=== PATIENT | female | born 1950 | race Caucasian/White ===

== ENCOUNTER 2017-12-15 08:47 | Inpatient (IN) | payer MEDICARE ==
[2017-12-07 13:39] LABS: PRE OP PROTIME 10.7 SECONDS (9.0-12.0)
[2017-12-07 13:43] LABS: ALBUMIN 3.5 G/DL (3.4-5.0); ALBUMIN/GLOBULIN RATIO 0.9 (1.1-1.5); ALKALINE PHOSPHATASE 86 IU/L (46-116); BLOOD UREA NITROGEN 20 MG/DL (7-18); CALCIUM 9.2 MG/DL (8.5-10.1); CHLORIDE 105 MMOL/L (99-107); CREATININE 0.74 MG/DL (0.40-0.90); PRE OP ALT 21 U/L (30-65); PRE OP ANION GAP 8 (8-16); PRE OP AST 18 U/L (10-37); PRE OP BILIRUB, TOTAL 0.6 MG/DL (0.0-1.0); PRE OP GLUCOSE 102 MG/DL (70-104); PRE OP POTASSIUM 3.8 MMOL/L (3.4-5.1); PRE OP SODIUM 142 MMOL/L (135-145); TOTAL CARBON DIOXIDE 29.1 MMOL/L (24-32); TOTAL PROTEIN 7.6 G/DL (6.4-8.2); eGFR 79 ML/MIN
[2017-12-07 13:48] LABS: BASOPHILS # (AUTO) 0.2 X10'3 (0-0.2); BASOPHILS % (AUTO) 2.1 % (0-1); EOSINOPHILS # (AUTO) 0.2 X10'3 (0-0.9); EOSINOPHILS % (AUTO) 2.4 % (0-6); LYMPHOCYTES # (AUTO) 2.3 X10'3 (1.1-4.8); LYMPHOCYTES % (AUTO) 30.2 % (21-51); MEAN CORPUSCULAR HGB CONC 34.5 % (33.0-36.5); MEAN CORPUSCULAR VOLUME 95.9 FL (78-98); MEAN PLATELET VOLUME 9.3 FL (7.4-10.4); MONOCYTES # (AUTO) 0.6 X10'3 (0-0.9); MONOCYTES % (AUTO) 8.1 % (2-12); NEUTROPHILS # (AUTO) 4.2 X10'3 (1.8-7.7); NEUTROPHILS % (AUTO) 57.2 % (42-75); PRE OP HEMATOCRIT 44.3 % (35.0-45.0); PRE OP HEMOGLOBIN 15.3 g/dL (12.0-16.0); PRE OP PLATELET COUNT 129 X10'3 (140-440); RED BLOOD COUNT 4.62 X10'6 (4.20-5.60); RED CELL DISTRIBUTION WIDTH 12.1 % (11.5-14.5)
[2017-12-15] VITALS (16 sets, daily range): BP systolic 78–144; BP diastolic 41–108
[~2017-12-15] VITALS: Ht 157.5 cm; Wt 113.6 kg
[~2017-12-15 08:47] MED LIST: ACET-812 PO; cefazolin/dext.iso 2gm/100 ML IV ONE; famotidine 20mg tablet PO ONE; ringers solution, lacted 1,000 ML IV SCH; vancomycin inj 1,500 MG in normal saline 300ml IV soln IV ONE
[2017-12-15] MEDS ORDERED: LIDOcaine 1% (10mg/ml) 2ml vial ONE (09:43)
[2017-12-15] MEDS ORDERED: tetracaine 1% (10mg/ml) pres. free inj. ONE (12:26)
[2017-12-15] MEDS ORDERED: fentaNYL/PF 50MCG/1 ML 2ML syringe ONE (12:30)
[2017-12-15] MEDS ORDERED: MIDAZolam 5mg/5ml vial ONE (12:30)
[2017-12-15] MEDS ORDERED: morphine /PF 1mg/ml 10ml inj. ONE (12:30)
[2017-12-15] MEDS ORDERED: ketorolac trometh. 30mg/ml inj. ONE (12:35)
[2017-12-15] MEDS ORDERED: ROPIVAcaine 0.5% (5mg/ml) 30ml vial ONE ×2 (12:35→13:51)
[2017-12-15] MEDS ORDERED: vancomycin 1,000mg inj ONE (12:35)
[2017-12-15] MEDS ORDERED: sevoflurane 250ml liquid IH ONE (13:20)
[2017-12-15] MEDS ORDERED: tranexamic acid inj. 1,150 MG in normal saline 100ml IV soln 100 ML IV ONE ×5 (13:25→19:05)
[2017-12-15] MEDS ORDERED: LIDOcaine 1%/PF 5ML 10 MG/ML VIAL ONE (13:46)
[2017-12-15] MEDS ORDERED: propofol inj 20 ML IV ONE (13:46)
[2017-12-15] MEDS ORDERED: diphenhydrAMINE 50 mg/ml inj ONE (13:46)
[2017-12-15] MEDS ORDERED: ringers solution, lacted 1,000 ML IV SCH (14:49)
[2017-12-15] MEDS ORDERED: naloxone 2mg/2ml inj 2 MG in normal saline 500ml IV soln 500 ML IV PRN (14:49)
[2017-12-15] MEDS ORDERED: diphenhydrAMINE 50 mg/ml inj IV PRN (14:50)
[2017-12-15] MEDS ORDERED: morphine 4 MG/ML inj SYRINge IV PRN ×2 (14:50)
[2017-12-15] MEDS ORDERED: proCHLORperazine 10 MG/2 ml inj IV PRN (14:50)
[2017-12-15] MEDS ORDERED: meperidine/PF 25mg/ml syringe IV PRN ×3 (14:50)
[2017-12-15] MEDS ORDERED: ondansetron/PF 4mg/2ml inj IV PRN ×3 (14:50→16:05)
[2017-12-15] MEDS ORDERED: bisacodyl 10mg suppository rectal RC PRN (16:05)
[2017-12-15] MEDS ORDERED: magnesium hydroxide 30ml (MOM) UD suspension PO PRN (16:05)
[2017-12-15] MEDS ORDERED: HYDROmorphone 1 mg/ml syringe IV PRN ×2 (16:05)
[2017-12-15] MEDS ORDERED: acetaminophen 325mg tablet PO PRN (16:05)
[2017-12-15] MEDS ORDERED: diphenhydrAMINE 25mg capsule PO PRN ×2 (16:05)
[2017-12-15] MEDS ORDERED: oxyCODONE IR 5mg (immed. release) tablet PO PRN (16:05)
[2017-12-15] MEDS ORDERED: vancomycin/NS 1 GM ADD-VANTAGE 250 ML IV SCH (20:00)
[2017-12-15] MEDS: ketorolac tromethamine 15mg/ml inj. IV SCH (20:02)
[2017-12-15] MEDS: acetaminophen 325mg tablet PO SCH (20:02)
[2017-12-15] MEDS: potassium cl 20mEq in 1/2 NS 1,000 ML IV SCH ×2 (20:03→23:57)
[2017-12-15] MEDS: gabapentin 300mg capsule PO SCH (21:02)
[2017-12-15] MEDS: sennosides 8.6mg tablet PO SCH (21:02)
[2017-12-15] MEDS: ceFAZolin 1GM/D5W- ADD-VANTAGE 50 ML IV SCH (23:55)
[2017-12-16] MEDS: ketorolac tromethamine 15mg/ml inj. IV SCH ×3 (01:53→14:53)
[2017-12-16 02:00] VITALS: BP 97/43
[2017-12-16] MEDS: acetaminophen 325mg tablet PO SCH ×4 (02:01→20:13)
[2017-12-16] MEDS: potassium cl 20mEq in 1/2 NS 1,000 ML IV SCH (05:37)
[2017-12-16] MEDS: oxyCODONE IR 5mg (immed. release) tablet PO PRN ×4 (05:37→19:30)
[2017-12-16 05:55] LABS: BASOPHILS % (AUTO) 0.3 % (0-1); EOSINOPHILS # (AUTO) 0.1 X10'3 (0-0.9); EOSINOPHILS % (AUTO) 1.3 % (0-6); HEMOGLOBIN 13.8 g/dl (12.0-16.0); LYMPHOCYTES # (AUTO) 0.9 X10'3 (1.1-4.8); LYMPHOCYTES % (AUTO) 12.9 % (21-51); MEAN CORPUSCULAR HEMOGLOBIN 32.9 PG (27.0-31.0); MEAN CORPUSCULAR HGB CONC 34.4 % (33.0-36.5); MEAN CORPUSCULAR VOLUME 95.5 FL (78-98); MEAN PLATELET VOLUME 8.1 FL (7.4-10.4); MONOCYTES # (AUTO) 0.4 X10'3 (0-0.9); MONOCYTES % (AUTO) 5.7 % (2-12); NEUTROPHILS # (AUTO) 5.8 X10'3 (1.8-7.7); NEUTROPHILS % (AUTO) 79.8 % (42-75); PLATELET COUNT 121 X10'3 (140-440); RED BLOOD COUNT 4.19 X10'6 (4.20-5.60); RED CELL DISTRIBUTION WIDTH 12.8 % (11.5-14.5); WHITE BLOOD COUNT 7.3 X10'3 (4.5-11.0)
[2017-12-16 06:00] VITALS: BP 108/45
[2017-12-16 06:16] LABS: ANION GAP 5 (8-16); CHLORIDE 108 MMOL/L (99-107); POTASSIUM 4.5 MMOL/L (3.5-5.1); SODIUM 140 MMOL/L (135-145); TOTAL CARBON DIOXIDE 27.4 MMOL/L (24-32)
[2017-12-16] MEDS: gabapentin 300mg capsule PO SCH ×3 (08:18→20:12)
[2017-12-16] MEDS: ceFAZolin 1GM/D5W- ADD-VANTAGE 50 ML IV SCH (08:18)
[2017-12-16] MEDS: aspirin 325mg tablet PO SCH (08:19)
[2017-12-16 10:30] VITALS: BP 113/50
[2017-12-16 18:00] VITALS: BP 133/56
[2017-12-16] MEDS: sennosides 8.6mg tablet PO SCH (20:12)
[2017-12-16] MEDS: celeCOXIB 100mg capsule PO SCH (20:12)
[2017-12-16 22:00] VITALS: BP 118/40
[2017-12-17] MEDS: potassium cl 20mEq in 1/2 NS 1,000 ML IV SCH (00:05)
[2017-12-17] MEDS: oxyCODONE IR 5mg (immed. release) tablet PO PRN ×2 (00:31→04:39)
[2017-12-17] MEDS: acetaminophen 325mg tablet PO SCH ×2 (01:55→07:34)
[2017-12-17 05:00] VITALS: BP 127/52
[2017-12-17] MEDS ORDERED: ASPI-1 PO (06:40)
[2017-12-17 07:33] LABS: BASOPHILS % (AUTO) 0.3 % (0-1); EOSINOPHILS # (AUTO) 0.1 X10'3 (0-0.9); EOSINOPHILS % (AUTO) 2.3 % (0-6); HEMATOCRIT 37.8 % (35.0-45.0); HEMOGLOBIN 12.8 g/dl (12.0-16.0); LYMPHOCYTES # (AUTO) 1.4 X10'3 (1.1-4.8); LYMPHOCYTES % (AUTO) 22.1 % (21-51); MEAN CORPUSCULAR HEMOGLOBIN 32.7 PG (27.0-31.0); MEAN CORPUSCULAR HGB CONC 33.9 % (33.0-36.5); MEAN CORPUSCULAR VOLUME 96.4 FL (78-98); MONOCYTES # (AUTO) 0.4 X10'3 (0-0.9); MONOCYTES % (AUTO) 6.2 % (2-12); NEUTROPHILS # (AUTO) 4.3 X10'3 (1.8-7.7); NEUTROPHILS % (AUTO) 69.1 % (42-75); PLATELET COUNT 118 X10'3 (140-440); RED BLOOD COUNT 3.92 X10'6 (4.20-5.60); WHITE BLOOD COUNT 6.3 X10'3 (4.5-11.0)
[2017-12-17] MEDS: gabapentin 300mg capsule PO SCH (07:34)
[2017-12-17] MEDS: celeCOXIB 100mg capsule PO SCH (07:34)
[2017-12-17] MEDS: aspirin 325mg tablet PO SCH (07:34)
[2017-12-17 10:00] VITALS: BP 150/60
[2017-12-17] MEDS ORDERED: acetaminophen 325mg tablet PO PRN (16:05)
== END 2017-12-17 10:40 | disposition home health service (06) | DRG 470 ==
LOC: PAS IN 08:47 → EDSTATUS 12:45 → ORTHO 4S 17:40
PROVIDERS: ADMIT Orthopaedic Surgery; ATTEND Orthopaedic Surgery
PROC: 3E0T3BZ Introduction of Anesthetic Agent into Peripheral Nerves and Plexi, Percutaneous Approach (ICD-10-PCS; 2017-12-15)
PROC: 8E0YXBZ Computer Assisted Procedure of Lower Extremity (ICD-10-PCS; 2017-12-15)
PROC: 8E0YXCZ Robotic Assisted Procedure of Lower Extremity (ICD-10-PCS; 2017-12-15)
PROC: 0SRC0J9 Replacement of Right Knee Joint with Synthetic Substitute, Cemented, Open Approach (ICD-10-PCS; principal; 2017-12-15 13:20)
PROC: 5A09357 Assistance with Respiratory Ventilation, Less than 24 Consecutive Hours, Continuous Positive Airway Pressure (ICD-10-PCS; 2017-12-16)
DX: M17.11 Unilateral primary osteoarthritis, right knee (principal); Z68.42 Body mass index [BMI] 45.0-49.9, adult; G47.33 Obstructive sleep apnea (adult) (pediatric); Z96.652 Presence of left artificial knee joint; E66.9 Obesity, unspecified; Z79.899 Other long term (current) drug therapy
CPT/HCPCS: 36415; 80051; 80053; 85025; 85610; 85730; 87070; 97110; 97116; 97162; 97530; A6455; A7000; C1713; C1758; C1776; J0690; J1200; J1885; J2001; J2250; J2274; J2310; J2704; J2795; J3010; J3370; J3490; J7030; J7120

== ENCOUNTER 2018-11-26 07:22 | Inpatient (IN) | payer MEDICARE ==
[2018-11-18 13:00] LABS: BASOPHILS # (AUTO) 0.1 X10'3 (0-0.2); BASOPHILS % (AUTO) 0.8 % (0-1); EOSINOPHILS # (AUTO) 0.1 X10'3 (0-0.9); LYMPHOCYTES # (AUTO) 1.9 X10'3 (1.1-4.8); MEAN CORPUSCULAR HEMOGLOBIN 32.8 PG (27.0-31.0); MEAN CORPUSCULAR HGB CONC 34.2 g/dL (33.0-36.5); MEAN CORPUSCULAR VOLUME 95.9 FL (78-98); MEAN PLATELET VOLUME 8.2 FL (7.4-10.4); MONOCYTES # (AUTO) 0.6 X10'3 (0-0.9); MONOCYTES % (AUTO) 7.3 % (2-12); NEUTROPHILS # (AUTO) 4.9 X10'3 (1.8-7.7); NEUTROPHILS % (AUTO) 64.9 % (42-75); PRE OP HEMOGLOBIN 15.7 g/dL (12.0-16.0); PRE OP PLATELET COUNT 177 X10'3 (140-440)
[2018-11-18 13:10] LABS: PRE OP PROTIME 10.6 SECONDS (9.0-12.0)
[2018-11-18 13:12] LABS: ALBUMIN 3.6 G/DL (3.4-5.0); ALBUMIN/GLOBULIN RATIO 0.8 (1.1-1.5); ALKALINE PHOSPHATASE 99 IU/L (46-116); BLOOD UREA NITROGEN 24 MG/DL (7-18); BUN/CREATININE RATIO 34.3 (6.6-38.0); CALCIUM 8.8 MG/DL (8.5-10.1); CHLORIDE 108 MMOL/L (99-107); PRE OP ALT 22 U/L (30-65); PRE OP ANION GAP 7 (8-16); PRE OP AST 18 U/L (10-37); PRE OP BILIRUB, TOTAL 0.6 MG/DL (0.0-1.0); PRE OP GLUCOSE 87 MG/DL (70-104); PRE OP SODIUM 144 MMOL/L (135-145); TOTAL CARBON DIOXIDE 28.6 MMOL/L (24-32); eGFR 83 ML/MIN
[~2018-11-26] VITALS: Ht 157.5 cm; Wt 112.6 kg
[2018-11-26] VITALS (15 sets, daily range): BP systolic 91–159; BP diastolic 42–78
[2018-11-26] MEDS: potassium cl 20mEq in 1/2 NS 1,000 ML IV SCH ×2 (05:00→16:33)
[~2018-11-26 07:22] MED LIST changes: -cefazolin/dext.iso 2gm/100 ML IV ONE; -famotidine 20mg tablet PO ONE; -ringers solution, lacted 1,000 ML IV SCH; -vancomycin inj 1,500 MG in normal saline 300ml IV soln IV ONE
[2018-11-26] MEDS ORDERED: ringers solution, lacted 1,000 ML IV SCH ×2 (09:00→11:32)
[2018-11-26] MEDS ORDERED: cefazolin/dext.iso 2gm/50ml 50 ML IV ONE (09:00)
[2018-11-26] MEDS ORDERED: vancomycin inj 1,500 MG in normal saline 300ml IV soln IV ONE (09:00)
[2018-11-26] MEDS ORDERED: ceFAZolin 1GM/D5W- ADD-VANTAGE 50 ML IV ONE (09:00)
[2018-11-26] MEDS ORDERED: famotidine 20mg tablet PO ONE (09:00)
[2018-11-26] MEDS ORDERED: tranexamic acid inj. 1,100 MG in normal saline 100ml IV soln 100 ML IV ONE ×5 (10:45→18:15)
[2018-11-26] MEDS ORDERED: ketorolac trometh. 30mg/ml inj. ONE (10:46)
[2018-11-26] MEDS ORDERED: ROPIVAcaine 0.5% (5mg/ml) 30ml vial ONE ×2 (10:47→14:49)
[2018-11-26] MEDS ORDERED: morphine 4 MG/ML inj SYRINge IV PRN ×2 (11:35)
[2018-11-26] MEDS ORDERED: ondansetron/PF 4mg/2ml inj IV PRN (11:35)
[2018-11-26] MEDS ORDERED: meperidine/PF 25mg/ml syringe IV PRN ×3 (11:35)
[2018-11-26] MEDS ORDERED: proCHLORperazine 10 MG/2 ml inj IV PRN (11:35)
[2018-11-26] MEDS ORDERED: tetracaine 1% (10mg/ml) pres. free inj. ONE (11:47)
[2018-11-26] MEDS ORDERED: fentaNYL/PF 50MCG/1 ML 2ML syringe ONE (11:57)
[2018-11-26] MEDS ORDERED: MIDAZolam 1mg/ml 10ml vial ONE (11:57)
[2018-11-26] MEDS ORDERED: propofol inj 20 ML IV ONE ×3 (14:05)
[2018-11-26] MEDS ORDERED: oxyCODONE IR 5mg (immed. release) tablet PO PRN (15:15)
[2018-11-26] MEDS ORDERED: diphenhydrAMINE 25mg capsule PO PRN ×2 (15:15)
[2018-11-26] MEDS ORDERED: magnesium hydroxide 30ml (MOM) UD suspension PO PRN (15:15)
[2018-11-26] MEDS ORDERED: bisacodyl 10mg suppository rectal RC PRN (15:15)
[2018-11-26] MEDS ORDERED: HYDROmorphone inj. 0.5 MG/0.5 ML DISP.SYRIN IV PRN (15:15)
[2018-11-26] MEDS ORDERED: HYDROmorphone 1 mg/ml syringe IV PRN (15:15)
--- NOTE | 2018-11-26 15:30 | NUR ---
Received from OR via BED , accompanied by Anesthesiologist DR SARMIENTO and report given by Anesthesiolgist. PATIENT WAKING UP, DENIES PAIN, V/S WNL, NEUROVASCULAR CHECKS INTACT, 18G PIV RUE , RAMIREZ DRESSING TO RIGHT KNEE CDI W/ COLD POWDER PACK AND W/ SCD ON AND ON QUE BALL GTT. F/C DRAINING CLEAR YELLOW URINE. SENSATION T-10.
[2018-11-26] MEDS: ROPIVAcaine 0.2%/PF PAIN PUMP 550 ML IJ SCH (15:32)
--- NOTE | 2018-11-26 15:46 | NUR ---
patient report received from Carlos in disaster recovery analyst
--- NOTE | 2018-11-26 16:00 | NUR ---
PATIENT A&OX4, DENIES PAIN, V/S WNL, NEUROVASCULAR CHECKS INTACT, 18G PIV RUE , RAMIREZ DRESSING TO RIGHT KNEE CDI W/ COLD POWDER PACK AND W/ SCD ON AND ON QUE BALL GTT. F/C DRAINING CLEAR YELLOW URINE. SENSATION T-10. PATIENT TAKEN TO ORTHO WITH ALL BELONGINGS AND HOOKED UP TO MONITORS IN ROOM AND REPORT GIVEN TO FAMILY CASEWORKER WHO HAS TAKEN OVER PATIENT CARE.
[2018-11-26] MEDS: ceFAZolin 1GM/D5W- ADD-VANTAGE 50 ML IV SCH ×2 (16:32→22:58)
[2018-11-26] MEDS: oxyCODONE IR 5mg (immed. release) tablet PO PRN ×2 (17:46→22:49)
--- NOTE | 2018-11-26 18:50 | NUR ---
Problems reprioritized. Patient report given, questions answered & plan of care reviewed with Britney REDDY.
[2018-11-26] MEDS ORDERED: vancomycin/NS 1 GM ADD-VANTAGE 250 ML IV SCH (20:00)
[2018-11-26] MEDS: sennosides 8.6mg tablet PO SCH (20:14)
[2018-11-26] MEDS: acetaminophen 325mg tablet PO PRN (20:15)
[2018-11-27] MEDS: acetaminophen 325mg tablet PO PRN ×3 (02:20→21:37)
[2018-11-27 03:00] VITALS: BP 139/66
[2018-11-27] MEDS: oxyCODONE IR 5mg (immed. release) tablet PO PRN ×5 (03:40→23:10)
[2018-11-27 06:10] VITALS: BP 138/82
[2018-11-27 06:23] LABS: ANION GAP 6 (8-16); CHLORIDE 107 MMOL/L (99-107); POTASSIUM 4.2 MMOL/L (3.5-5.1); SODIUM 139 MMOL/L (135-145); TOTAL CARBON DIOXIDE 25.8 MMOL/L (24-32)
[2018-11-27 06:28] LABS: BASOPHILS % (AUTO) 0.6 % (0-1); EOSINOPHILS # (AUTO) 0.1 X10'3 (0-0.9); EOSINOPHILS % (AUTO) 1.3 % (0-6); HEMATOCRIT 34.3 % (35.0-45.0); HEMOGLOBIN 11.9 g/dl (12.0-16.0); LYMPHOCYTES # (AUTO) 1.2 X10'3 (1.1-4.8); LYMPHOCYTES % (AUTO) 15.1 % (21-51); MEAN CORPUSCULAR HEMOGLOBIN 33.3 PG (27.0-31.0); MEAN CORPUSCULAR HGB CONC 34.6 g/dL (33.0-36.5); MEAN CORPUSCULAR VOLUME 96.4 FL (78-98); MEAN PLATELET VOLUME 8.2 FL (7.4-10.4); MONOCYTES # (AUTO) 0.7 X10'3 (0-0.9); MONOCYTES % (AUTO) 8.6 % (2-12); NEUTROPHILS % (AUTO) 74.4 % (42-75); PLATELET COUNT 113 X10'3 (140-440); RED BLOOD COUNT 3.56 X10'6 (4.20-5.60); RED CELL DISTRIBUTION WIDTH 12.9 % (11.5-14.5)
[2018-11-27] MEDS: ondansetron/PF 4mg/2ml inj IV PRN (07:15)
[2018-11-27] MEDS: aspirin 325mg tablet PO SCH (08:19)
[2018-11-27] MEDS: potassium cl 20mEq in 1/2 NS 1,000 ML IV SCH ×3 (08:19→23:15)
[2018-11-27 10:00] VITALS: BP 161/57
[2018-11-27 18:00] VITALS: BP 162/66
--- NOTE | 2018-11-27 18:13 | NUR ---
Patient report given to Gayle REDDY
--- NOTE | 2018-11-27 18:15 | NUR ---
Received report from Rhonda REDDY. assumed care of patient.
[2018-11-27] MEDS: sennosides 8.6mg tablet PO SCH (20:47)
[2018-11-27 22:00] VITALS: BP 163/60
[2018-11-28] MEDS: oxyCODONE IR 5mg (immed. release) tablet PO PRN ×3 (03:06→12:23)
[2018-11-28 06:00] VITALS: BP 154/56
--- NOTE | 2018-11-28 06:30 | NUR ---
Gave report to Radha REDDY.
[2018-11-28 06:51] LABS: BASOPHILS % (AUTO) 0.6 % (0-1); EOSINOPHILS # (AUTO) 0.1 X10'3 (0-0.9); EOSINOPHILS % (AUTO) 1.5 % (0-6); HEMATOCRIT 33.5 % (35.0-45.0); HEMOGLOBIN 11.7 g/dl (12.0-16.0); LYMPHOCYTES % (AUTO) 12.3 % (21-51); MEAN CORPUSCULAR HEMOGLOBIN 33.5 PG (27.0-31.0); MEAN CORPUSCULAR HGB CONC 34.8 g/dL (33.0-36.5); MEAN CORPUSCULAR VOLUME 96.1 FL (78-98); MEAN PLATELET VOLUME 8.2 FL (7.4-10.4); MONOCYTES # (AUTO) 0.8 X10'3 (0-0.9); MONOCYTES % (AUTO) 10.5 % (2-12); NEUTROPHILS # (AUTO) 5.8 X10'3 (1.8-7.7); NEUTROPHILS % (AUTO) 75.1 % (42-75); PLATELET COUNT 111 X10'3 (140-440); RED BLOOD COUNT 3.49 X10'6 (4.20-5.60); RED CELL DISTRIBUTION WIDTH 12.8 % (11.5-14.5); WHITE BLOOD COUNT 7.7 X10'3 (4.5-11.0)
[2018-11-28] MEDS: aspirin 325mg tablet PO SCH (07:50)
[2018-11-28 10:00] VITALS: BP 136/52
[2018-11-28] MEDS: ROPIVAcaine 0.2%/PF PAIN PUMP 550 ML IJ SCH (11:32)
[2018-11-28] MEDS: ondansetron/PF 4mg/2ml inj IV PRN (14:50)
[2018-11-28] MEDS ORDERED: acetaminophen 325mg tablet PO PRN (15:15)
== END 2018-11-28 15:27 | disposition home health service (06) | DRG 467 ==
LOC: PAS IN 07:22 → EDSTATUS 11:00 → ORTHO 4S 16:08
PROVIDERS: ADMIT Orthopaedic Surgery; ATTEND Orthopaedic Surgery
PROC: 0SRC0J9 Replacement of Right Knee Joint with Synthetic Substitute, Cemented, Open Approach (ICD-10-PCS; 2018-11-26)
PROC: 0SPC0JZ Removal of Synthetic Substitute from Right Knee Joint, Open Approach (ICD-10-PCS; principal; 2018-11-26 11:56)
DX: T84.84XA Pain due to internal orthopedic prosthetic devices, implants and grafts, initial encounter (principal); Z68.42 Body mass index [BMI] 45.0-49.9, adult; Y83.1 Surgical operation with implant of artificial internal device as the cause of abnormal reaction of the patient, or of later complication, without mention of misadventure at the time of the procedure; M65.9 Synovitis and tenosynovitis, unspecified; Z96.651 Presence of right artificial knee joint; M24.661 Ankylosis, right knee; Z79.899 Other long term (current) drug therapy; E66.9 Obesity, unspecified
CPT/HCPCS: 36415; 80051; 80053; 82948; 85025; 85610; 85730; 87070; 87075; 87081; 87176; 97110; 97116; 97162; 97530; 97535; A4215; A6454; A7000; C1713; C1758; C1776; G0378; J0690; J1170; J1885; J2250; J2405; J2704; J2795; J3010; J3370; J3480; J7120